=== PATIENT | female | born 1965 | race American Indian/Alaskan Native ===

== ENCOUNTER 2020-08-30 18:15 | Emergency (ER) | payer MEDICARE, MEDICAID ==
--- NOTE | 2020-08-31 01:01 | Emergency Department Report ---
ED General Adult HPI - General Chief complaint: Chest Pain Stated complaint: RIGHT SIDE PAIN Time Seen by Provider: 08/31/20 00:14 Source: patient Mode of arrival: Ambulatory Limitations: No Limitations - History of Present Illness Initial comments: Chief complaint: This is a 54-year-old female with history of TIA, hypertension, GERD, diabetes mellitus, hyperlipidemia who presents with right-sided chest pain rating to the right arm. Patient said that her right chest just felt funny. Moderate pain. She denies fever cough shortness of breath or vomiting. Pain was persistent at rest. No association with movement or eating. Patient is at chronic right ankle pain after fracture 2 years ago. Pain is persistent and typical. Patient does not have a history of heart disease. No family history of heart disease. PCP Dr. Eva Damico. -: Gradual, This afternoon (This afternoon, persistent rales now spontaneously resolved) Location: chest Severity scale (0 -10): 3 Consistency: now resolved Improves with: none Worsens with: none Associated Symptoms: other (Chronic ankle pain) - Related Data Home Medications Medication Instructions Recorded Confirmed Last Taken Cyclobenzaprine HCl [FLEXERIL] 10 mg PO 02/07/13 02/07/13 Unknown Glimepiride [Amaryl] 1 mg PO 02/07/13 02/07/13 Unknown Simvastatin [Zocor] 5 mg PO 02/07/13 02/07/13 Unknown cloNIDine [Catapres] 0.1 mg PO 02/07/13 02/07/13 Unknown Previous Rx's Medication Instructions Recorded Last Taken Type Naproxen [Naprosyn TAB] 500 mg PO BID #20 tablet 02/07/13 Unknown Rx HYDROcodone/APAP 10-325 [[place] 1 each PO Q6HR PRN #10 tablet 11/09/13 Unknown Rx 10/325] HYDROcodone/APAP 5-325 [[place] 1 each PO Q6HR PRN #15 tablet 07/14/14 Unknown Rx 5/325] HYDROcodone/APAP 5-325 [[place] 1 each PO Q6HR PRN #15 tablet 08/31/20 Unknown Rx 5/325] Allergies Allergy/AdvReac Type Severity Reaction Status Date / Time No Known Allergies Allergy Verified 02/07/13 21:27 ED Review of Systems ROS: Stated complaint: RIGHT SIDE PAIN Other details as noted in HPI Comment: All other systems reviewed and negative Constitutional: denies: fever, malaise Respiratory: denies: cough, shortness of breath Cardiovascular: chest pain Musculoskeletal: arthralgia ED Past Medical Hx - Past Medical History Previous Medical History?: No Hx Hypertension: Yes Hx Diabetes: Yes Additional medical history: high cholesterol, GERD - Surgical History Past Surgical History?: No Additional Surgical History: breast reduction. partial hysterectomy. rt ankle sandra and screws - Family History Family history: other (No known family history of cardiac disease) - Social History Smoking Status: Never Smoker Substance Use Type: None - Medications Home Medications: Home Medications Medication Instructions Recorded Confirmed Last Taken Type Cyclobenzaprine HCl [FLEXERIL] 10 mg PO 02/07/13 02/07/13 Unknown History Glimepiride [Amaryl] 1 mg PO 02/07/13 02/07/13 Unknown History Naproxen [Naprosyn TAB] 500 mg PO BID #20 tablet 02/07/13 Unknown Rx Simvastatin [Zocor] 5 mg PO 02/07/13 02/07/13 Unknown History cloNIDine [Catapres] 0.1 mg PO 02/07/13 02/07/13 Unknown History HYDROcodone/APAP 10-325 [[place] 1 each PO Q6HR PRN #10 tablet 11/09/13 Unknown Rx 10/325] HYDROcodone/APAP 5-325 [[place] 1 each PO Q6HR PRN #15 tablet 07/14/14 Unknown Rx 5/325] HYDROcodone/APAP 5-325 [[place] 1 each PO Q6HR PRN #15 tablet 08/31/20 Unknown Rx 5/325] ED Physical Exam - General Limitations: No Limitations General appearance: alert, in no apparent distress, other (Pleasant smiling no acute distress appears comfortable) - Head Head exam: Present: atraumatic, normocephalic - Eye Eye exam: Present: normal appearance - ENT ENT exam: Present: mucous membranes moist - Neck Neck exam: Present: normal inspection, full ROM - Respiratory Respiratory exam: Present: normal lung sounds bilaterally. Absent: respiratory distress, wheezes, rales, rhonchi - Cardiovascular Cardiovascular Exam: Present: regular rate, normal rhythm, normal heart sounds. Absent: systolic murmur, diastolic murmur, rubs, gallop - GI/Abdominal GI/Abdominal exam: Present: soft, normal bowel sounds. Absent: distended, tenderness, guarding, rebound - Extremities Exam Extremities exam: Present: normal inspection - Neurological Exam Neurological exam: Present: alert, oriented X3 - Psychiatric Psychiatric exam: Present: normal affect, normal mood - Skin Skin exam: Present: warm, dry, intact, normal color. Absent: rash ED Course Vital Signs 08/31/20 00:15 Temperature 98.2 F Pulse Rate 87 Respiratory 16 Rate Blood Pressure 133/86 [Right] O2 Sat by Pulse 100 Oximetry ED Medical Decision Making - EKG Data -: EKG Interpreted by Me EKG shows normal: sinus rhythm, axis, intervals, QRS complexes, ST-T waves Rate: normal - EKG Data Interpretation: normal EKG - Medical Decision Making 1. Chest pain atypical for ACS. Patient declined lab work after prolonged stay in our waiting area. Patient understands her troponin is necessary to rule out heart damage. With also persistent pain I do not suspect acute myocardial infarction. Patient does have risk factors for coronary artery disease. However she does not have a presentation concerning for acute coronary syndrome. she understands to follow-up with licensed plumber. She understands to call 911 if chest pain recurs. I suspect GERD as the cause. 2. Chronic ankle pain status post remote fracture injury referred patient orthopedic surgeon. She received prescription for [place]. Critical care attestation.: If time is entered above; I have spent that time in minutes in the direct care of this critically ill patient, excluding procedure time. ED Disposition Clinical Impression: GERD (gastroesophageal reflux disease), Chronic pain of right ankle Disposition: DC-01 TO HOME OR SELFCARE Is pt being admited?: No Does the pt Need Aspirin: No Condition: Stable Instructions: Gastroesophageal Reflux Disease, Adult, [id number] Prescriptions: HYDROcodone/APAP 5-325 [[place] 5/325] 1 each PO Q6HR PRN #15 tablet PRN Reason: Pain Referrals: NATANAEL DOSHI MD [Staff Physician] - 3-5 Days LUÍS OCHOA MD [Staff Physician] - 3-5 Days Forms: Work/School Release Form(ED)
[2020-08-31] MEDS ORDERED: HYDROcodone/ACETAMINOPHEN 5-325 MG TAB PO ONE (01:02)
[2020-08-31] MEDS ORDERED: KETOROLAC 30 MG/1 ML INJ IM ONE (01:02)
[2020-08-31 01:14] VITALS: BP 156/83
--- NOTE | 2020-09-09 10:35 | Electrocardiograph Report ---
[facility] Test Date: 2020-08-30 Test Time: 20:38:50 Pat Name: KIKA BLISS Department: Room: Gender: F Order Packer Or Packager: : 1965 Requested By: NONA CORBIN Order Number: [id number] Reading MD: Darryn Tan Measurements Intervals [place] Rate: 73 P: 33 HI: 167 QRS: -6 QRSD: 89 T: 3 QT: 390 QTc: 430 Interpretive Statements Sinus rhythm Left ventricle hypertrophy No previous ECG available for comparison Electronically Signed On 09-09-2020 10:34:58 EDT by Darryn Tan
== END 2020-08-31 01:19 | disposition home or self-care (01) ==
LOC: ED 18:15
DX: K21.9 Gastro-esophageal reflux disease without esophagitis (principal); G89.29 Other chronic pain; M25.571 Pain in right ankle and joints of right foot; I10 Essential (primary) hypertension; E11.9 Type 2 diabetes mellitus without complications; E78.00 Pure hypercholesterolemia, unspecified; Z90.710 Acquired absence of both cervix and uterus; Z98.890 Other specified postprocedural states; Z79.899 Other long term (current) drug therapy
CPT/HCPCS: 93005; 96372; 99282; J1885

== ENCOUNTER 2021-07-31 22:39 | Emergency (ER) | payer MEDICARE ==
[2021-07-31 23:10] VITALS: BP 141/78
--- NOTE | 2021-08-01 00:32 | XRay Report ---
CHEST 2 VIEWS INDICATION / CLINICAL INFORMATION: CHEST PAIN . COMPARISON: None available. FINDINGS: SUPPORT DEVICES: None. HEART / MEDIASTINUM: No significant abnormality. LUNGS / PLEURA: No significant pulmonary or pleural abnormality. No pneumothorax. ADDITIONAL FINDINGS: No significant additional findings. IMPRESSION: 1. No acute findings. Signer Name: Jason East DO Signed: 08/01/2021 12:28 AM Workstation Name: [id number]
[2021-08-01 00:40] LABS: Basophils # (Auto) 0.1 K/mm3 (0.0-0.1); Basophils % (Auto) 0.9 % (0.0-1.8); Eosinophils # (Auto) 0.2 K/mm3 (0.0-0.4); Eosinophils % (Auto) 1.9 % (0.0-4.3); Lymphocytes # (Auto) 3.2 K/mm3 (1.2-5.4); Mean Corpuscular HGB Conc 30 % (30-34); Mean Corpuscular Volume 72 fl (79-97); Monocytes # (Auto) 0.7 K/mm3 (0.0-0.8); Monocytes % (Auto) 7.9 % (0.0-7.3); Platelet Count 277 K/mm3 (140-440); Red Blood Count 5.53 M/mm3 (3.65-5.03); Red Cell Distribution Width 14.8 % (13.2-15.2)
[2021-08-01 00:42] LABS: Hematocrit 39.9 % (30.3-42.9)
[2021-08-01 00:56] LABS: Alanine Aminotransferase 16 units/L (7-56); Albumin 4.3 g/dL (3.9-5); BUN/Creatinine Ratio 22; Blood Urea Nitrogen 24 mg/dL (7-17); Calcium 8.9 mg/dL (8.4-10.2); Hemolysis Index 5
[2021-08-01] MEDS ORDERED: ACETAMINOPHEN 325 MG TAB PO ONE (03:54)
[2021-08-01] MEDS ORDERED: PANTOPRAZOLE 40 MG TAB PO ONE (03:54)
[2021-08-01] MEDS ORDERED: IBUPROFEN 400 MG TAB PO ONE (03:54)
--- NOTE | 2021-08-01 03:59 | Emergency Department Report ---
ED General Adult HPI - General Chief complaint: Chest Pain Stated complaint: CHEST PAIN/RT ARM PAIN PUI?: No Time Seen by Provider: 08/01/21 03:25 Source: patient, RN notes reviewed, old records reviewed Mode of arrival: Ambulatory Limitations: No Limitations - History of Present Illness Initial comments: During the history and physical examination, I am chaperoned by patricia De La Rosa Patient is a 55-year-old female, with a history of body mass index of 36, hypertension and high cholesterol, presenting to the ER today with a complaint of 1 week nonexertional right-sided trapezius pain, right shoulder pain, and right anterior chest wall pain. Denies vomiting, diaphoresis and exertional shortness of breath. Pain increases with palpation and range of motion. It decreases with rest. Patient denies travel, surgery, immobilization, DVT/PE risk factors. Has not taken Tylenol or Motrin [id number]. Does some repetitive range of motion for work. -: days(s), week(s) Location: chest, right Quality: aching Consistency: constant Improves with: rest Worsens with: movement - Related Data Home Medications Medication Instructions Recorded Confirmed Last Taken Glimepiride [Amaryl] 1 mg PO 02/07/13 02/07/13 Unknown Simvastatin [Zocor] 5 mg PO 02/07/13 02/07/13 Unknown cloNIDine [Catapres] 0.1 mg PO 02/07/13 02/07/13 Unknown Previous Rx's Medication Instructions Recorded Last Taken Type Naproxen [Naprosyn TAB] 500 mg PO BID #20 tablet 02/07/13 Unknown Rx Acetaminophen [Non-Aspirin Extra 500 mg PO Q6HR PRN #30 tablet 08/01/21 Unknown Rx Strength] Ibuprofen [Motrin] 600 mg PO Q8H PRN #30 tablet 08/01/21 Unknown Rx Allergies Allergy/AdvReac Type Severity Reaction Status Date / Time No Known Allergies Allergy Verified 02/07/13 21:27 ED Review of Systems ROS: Stated complaint: CHEST PAIN/RT ARM PAIN Other details as noted in HPI Constitutional: denies: fever Eyes: denies: eye discharge ENT: denies: epistaxis Respiratory: denies: cough, wheezing Cardiovascular: chest pain (Anterior chest wall pain) Gastrointestinal: denies: nausea, vomiting, hematemesis, melena, hematochezia Musculoskeletal: arthralgia, myalgia Neurological: denies: weakness ED Past Medical Hx - Past Medical History Hx Hypertension: Yes Hx Diabetes: Yes Additional medical history: high cholesterol, GERD - Surgical History Additional Surgical History: breast reduction. partial hysterectomy. rt ankle sandra and screws - Social History Smoking Status: Never Smoker Substance Use Type: None - Medications Home Medications: Home Medications Medication Instructions Recorded Confirmed Last Taken Type Glimepiride [Amaryl] 1 mg PO 02/07/13 02/07/13 Unknown History Naproxen [Naprosyn TAB] 500 mg PO BID #20 tablet 02/07/13 Unknown Rx Simvastatin [Zocor] 5 mg PO 02/07/13 02/07/13 Unknown History cloNIDine [Catapres] 0.1 mg PO 02/07/13 02/07/13 Unknown History Acetaminophen [Non-Aspirin Extra 500 mg PO Q6HR PRN #30 tablet 08/01/21 Unknown Rx Strength] Ibuprofen [Motrin] 600 mg PO Q8H PRN #30 tablet 08/01/21 Unknown Rx ED Physical Exam - General Limitations: No Limitations General appearance: alert, in no apparent distress, obese - Head Head exam: Present: atraumatic, normocephalic - Eye Eye exam: Present: normal appearance, EOMI. Absent: nystagmus - ENT ENT exam: Present: normal exam, normal orophraynx, mucous membranes moist, normal external ear exam - Neck Neck exam: Present: normal inspection, full ROM. Absent: tenderness, meningismus - Respiratory Respiratory exam: Present: normal lung sounds bilaterally, chest wall tenderness. Absent: respiratory distress, wheezes, rales, rhonchi, stridor - Cardiovascular Cardiovascular Exam: Present: regular rate, normal rhythm, normal heart sounds. Absent: bradycardia, tachycardia, irregular rhythm, systolic murmur, diastolic murmur, rubs, gallop - GI/Abdominal GI/Abdominal exam: Present: soft. Absent: distended, tenderness, guarding, rebound, rigid, pulsatile mass - Extremities Exam Extremities exam: Present: normal inspection (There is no redness, pus, streaking over the upper extremities), full ROM, pedal edema, other (2+ pulses noted in the bilateral upper and lower extremities. There is no palpable cord. negative Homans sign. Muscular compartments are soft. The pelvis is stable.). Absent: calf tenderness - Back Exam Back exam: Present: normal inspection (There is no redness, pus or streaking), muscle spasm (Reproducible trapezius and paracervical muscular tenderness.), paraspinal tenderness. Absent: CVA tenderness (R), CVA tenderness (L) - Neurological Exam Neurological exam: Present: alert, oriented X3, normal gait, other (No facial droop. Tongue midline. Extraocular movements intact bilaterally. Facial sensation intact to light touch in V1, V2, V3 distribution bilaterally. 5 and a 5 strength in 4 extremities. Sensation intact to light touch in 4 extre mities.). Absent: motor sensory deficit - Psychiatric Psychiatric exam: Present: normal affect, normal mood - Skin Skin exam: Present: warm, dry, intact, normal color. Absent: rash ED Course Vital Signs 07/31/21 22:43 Temperature 98.3 F Pulse Rate 92 H Respiratory 18 Rate Blood Pressure 141/78 O2 Sat by Pulse 99 Oximetry - Pulse Oximetry Interpretation Digit-Finger Initial Pulse Oximetry Readin O2 Sat by Pulse Oximetry: 99 Actions Taken: none ED Medical Decision Making - Lab Data Result diagrams: 08/01/21 00:06 08/01/21 00:06 Vital Signs 07/31/21 22:43 Temperature 98.3 F Pulse Rate 92 H Respiratory 18 Rate Blood Pressure 141/78 O2 Sat by Pulse 99 Oximetry Lab Results 08/01/21 08/01/21 08/01/21 Range/Units 00:06 00:06 02:52 WBC 8.9 (4.5-11.0) K/mm3 RBC 5.53 H (3.65-5.03) M/mm3 Hgb 12.0 (10.1-14.3) gm/dl Hct 39.9 (30.3-42.9) % MCV 72 L (79-97) fl MCH 22 L (28-32) pg MCHC 30 (30-34) % RDW 14.8 (13.2-15.2) % Plt Count 277 (140-440) K/mm3 Lymph % (Auto) 36.0 H (13.4-35.0) % Morrill % (Auto) 7.9 H (0.0-7.3) % Eos % (Auto) 1.9 (0.0-4.3) % Baso % (Auto) 0.9 (0.0-1.8) % Lymph # (Auto) 3.2 (1.2-5.4) K/mm3 Morrill # (Auto) 0.7 (0.0-0.8) K/mm3 Eos # (Auto) 0.2 (0.0-0.4) K/mm3 Baso # (Auto) 0.1 (0.0-0.1) K/mm3 Seg Neutrophils % 53.3 (40.0-70.0) % Seg Neutrophils # 4.7 (1.8-7.7) K/mm3 Sodium 140 (137-145) mmol/L Potassium 4.1 (3.6-5.0) mmol/L Chloride 103.8 (98-107) mmol/L Carbon Dioxide 21 L (22-30) mmol/L Anion Gap 19 mmol/L BUN 24 H (7-17) mg/dL Creatinine 1.1 (0.6-1.2) mg/dL Estimated GFR > 60 ml/min BUN/Creatinine Ratio 22 % Glucose 151 H (65-100) mg/dL Calcium 8.9 (8.4-10.2) mg/dL Total Bilirubin 0.20 (0.1-1.2) mg/dL AST 15 (5-40) units/L ALT 16 (7-56) units/L Alkaline Phosphatase 91 (35-129) units/L Troponin T < 0.010 < 0.010 (0.00-0.029) ng/mL Total Protein 6.9 (6.3-8.2) g/dL Albumin 4.3 (3.9-5) g/dL Albumin/Globulin Ratio 1.7 % - EKG Data -: EKG Interpreted by Me EKG shows normal: sinus rhythm Rate: normal - EKG Data When compared to previous EKG there are: previous EKG unavailable 08/01/21 05:17 EKG #1 is interpreted at 22: 46 Sinus rhythm, 82 bpm. Left axis deviation, left anterior fascicular block, normal P wave axis. Normal intervals. Abnormal EKG. Not a STEMI. The EKG today appears to be unchanged from prior EKG from August 2020. EKG #2 is interpreted by myself at 04: 0 1 AM. Unchanged from prior EKG. Not a STEMI - Radiology Data Radiology results: pending, report reviewed, image reviewed CHEST 2 VIEWS INDICATION / CLINICAL INFORMATION: CHEST PAIN . COMPARISON: None available. FINDINGS: SUPPORT DEVICES: None. HEART / MEDIASTINUM: No significant abnormality. LUNGS / PLEURA: No significant pulmonary or pleural abnormality. No pneumothorax. ADDITIONAL FINDINGS: No significant additional findings. IMPRESSION: 1. No acute findings. Signer Name: Jason East DO Signed: 07/31/2021 11:28 PM Workstation Name: [id number] - Medical Decision Making Differential diagnosis, including but not limited to: Sprain, strain, costochondritis Assessment and plan: 55-year-old female, who is afebrile, with reassuring vital signs, who is not currently tachycardic, tachypneic or hypoxic, who denies DVT/PE risk factors, who is low risk by Wells criteria for pulmonary embolism, presenting with reproducible anterior chest wall tenderness, reproducible trapezius and paracervical muscular tenderness for 1 week. Troponin negative x2, EKG unchanged x2 and from prior. Patient's cardiovascular risk factor profile is reviewed and appreciated, however, given 1 week of symptoms, unremarkable vital signs, unremarkable laboratory studies and unchanged EKG, patient may follow-up with outpatient primary care or cardiology. Rest, ice, compression, elevation, Tylenol, Motrin, outpatient follow-up. Critical care attestation.: If time is entered above; I have spent that time in minutes in the direct care of this critically ill patient, excluding procedure time. ED Disposition Clinical Impression: Trapezius strain, Chest wall pain Disposition: HOME / SELF CARE / HOMELESS Is pt being admited?: No Does the pt Need Aspirin: No Condition: Good Instructions: Nonspecific Chest Pain, Adult, Muscle Strain, [id number] Additional Instructions: Patient may alternate ice packs and heat packs as needed for pain relief. Please take the prescribed pain medications as needed and directed. Participate in range of motion exercises, patient may google this on [employer], or any public social media. Follow-up with a primary care doctor, or packing and wrapping supervisor within the next 3 to 5 days for chest wall pain and trapezius pain. Rest, avoid heavy lifting and strenuous physical activities. Advance diet as tolerated, and drink plenty of fluids. Please return to the emergency room right away with new pain, worsened pain, migration of pain, projectile vomiting, change in mental status, confusion, inability tolerate liquid feeds, new, worsened or different symptoms not present on the initial emergency room evaluation Referrals: [facility] [Provider Group] - 3-5 Days [facility] - 3-5 Days [facility] [Provider Group] - 3-5 Days Forms: Work/School Release Form(ED) Heart Score - HEART Score History: Slightly suspicious EKG: Non-specific Age: 45-65 Risk factors: 1-2 risk factors Troponin: < normal limit HEART Score: 3 - EKG Read Time Time EKG Completed: 04:01 EKG Read Time: 04:01 - Critical Actions Critical Actions: 0-3 pts:0.9-1.7%risk of adverse cardiac event.Candidate for discharge
--- NOTE | 2021-08-01 11:23 | Electrocardiograph Report ---
[facility] Test Date: 2021-07-31 Test Time: 22:46:03 Pat Name: KIKA BLISS Department: ED Room: Gender: F Performance Instructor: JEANETH : 1965 Requested By: BERNICE WEINER Order Number: [id number] Reading MD: Amadou Chaves Measurements Intervals [place] Rate: 82 P: 57 HI: 158 QRS: -2 QRSD: 91 T: 19 QT: 357 QTc: 417 Interpretive Statements Sinus rhythm Compared to ECG 08/30/2020 20:38:50 No significant changes Electronically Signed On 08-01-2021 11:23:40 EDT by Amadou Chvaes
== END 2021-08-01 07:43 | disposition home or self-care (01) ==
LOC: ED 22:39
DX: S46.811A Strain of other muscles, fascia and tendons at shoulder and upper arm level, right arm, initial encounter (principal); R07.89 Other chest pain; I10 Essential (primary) hypertension; E78.00 Pure hypercholesterolemia, unspecified; K21.9 Gastro-esophageal reflux disease without esophagitis; Z90.710 Acquired absence of both cervix and uterus; Z98.890 Other specified postprocedural states; Z79.899 Other long term (current) drug therapy; X58.XXXA Exposure to other specified factors, initial encounter; Y93.89 Activity, other specified; Y92.89 Other specified places as the place of occurrence of the external cause; Y99.8 Other external cause status
CPT/HCPCS: 36415; 71046; 80053; 84484; 85025; 93005; 99284